=== PATIENT | female | born 2005 | race Caucasian/White ===

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

== ENCOUNTER 2024-10-07 17:45 | Outpatient (REF) | payer BC, SELFPAY ==
--- NOTE | 2024-10-07 15:30 | PAPFT_PTH ---
PATIENT: Zo Romero LOC: [facility]#:[id number] AGE/SX: 19/F ROOM: RE10/07/[address]: Babita Rey : 2005 BED: DIS: 10/07/2024 SPEC #: [id number] RECD: 10/08/24 12:42 STATUS: ESTELA REQ #: [id number] DEWAYNE: 10/07/24 15:[address]: Babita Rey DEPT: [facility] Cytology RECD BY: Leonora Diamond ENTERED: 10/08/24 12:43 SP TYPE: PAPFT OTHR DR: Aspen Hayes Tissues: 1 - CX/ENDOCX FOR PAP SMEARS Procedures: PAP THIN PREP/[facility] Screening Comments: [id number]
== END 2024-10-07 17:46 | disposition home or self-care (01) ==
LOC: NCHCN 17:45
PROVIDERS: PCP Pediatrics Adolescent Medicine; Visit Provider Family Medicine
DX: Z12.4 Encounter for screening for malignant neoplasm of cervix (principal)
CPT/HCPCS: 87491; 87591; 88142

== ENCOUNTER 2025-08-08 18:10 | Outpatient (REF) | payer BC, SELFPAY ==
[2025-08-11 11:53] LABS: Chlamydia Result Negative (Negative); GC Result Negative (Negative)
== END 2025-08-08 18:11 | disposition home or self-care (01) ==
LOC: NCHCN 18:10
PROVIDERS: PCP Pediatrics Adolescent Medicine; Visit Provider Family Medicine
DX: Z11.8 Encounter for screening for other infectious and parasitic diseases (principal)
CPT/HCPCS: 87491; 87591